=== PATIENT | female | born 1945 | race Caucasian/White ===

== ENCOUNTER → 2017-03-19 | Outpatient (CLI) | payer MEDICARE | END | disposition home or self-care (01) | LOC: CFH 09:57 | PROVIDERS: ATTEND Family Medicine | DX: Z12.31 Encounter for screening mammogram for malignant neoplasm of breast (principal); M81.0 Age-related osteoporosis without current pathological fracture | CPT/HCPCS: 77063; 77080; G0202 ==

== ENCOUNTER → 2018-07-10 | Outpatient (CLI) | payer MEDICARE | END | disposition home or self-care (01) | LOC: CVU 12:28 | PROVIDERS: ATTEND Nurse Practitioner Family | DX: I73.9 Peripheral vascular disease, unspecified (principal); M79.662 Pain in left lower leg; M79.661 Pain in right lower leg; I48.91 Unspecified atrial fibrillation | CPT/HCPCS: 93922 ==

== ENCOUNTER → 2018-08-12 | Outpatient (CLI) | payer MEDICARE ==
[~2018-08-12] MED LIST: OMNIPAQUE 350 MG/ML, 100ML BOTTLE ONE
== END | disposition home or self-care (01) ==
LOC: CFH 09:29
PROVIDERS: ATTEND Family Medicine
DX: K59.00 Constipation, unspecified (principal); M47.896 Other spondylosis, lumbar region
CPT/HCPCS: 74177; Q9967

== ENCOUNTER 2019-01-31 23:18 | Emergency (ER) | payer MEDICARE ==
[~2019-01-31] VITALS: Ht 160 cm; Wt 47.0 kg
--- NOTE | 2019-01-31 23:53 | NUR ---
THIS IS A 73 Y/O FEMALE COMING TO THE ED FOR MULTIPLE SYMPTOMS THAT PER PT ORIGINATED WITH UTI THAT WAS DIAGNOSED LAST WEEK. PT REPORTS SHE WAS PLACED ON ABX BUT WAS TOLD TO STOP WHEN SHE STARTED DEVELOPING CHEST PAIN. PT DENIES TRUAMA. PT HAS NO SIGNS OF TRAUMA. PT IS TENDER TO PALPATION ON CHEST. PT PLACED IN BED AND AWAITING FURTHER ORDERS. CALL LIGHT IN REACH.
--- NOTE | 2019-02-01 00:26 | NUR ---
UA COLLECTED AND SENT TO LAB.
[2019-02-01 00:45] LABS: CULTURE INDICATED? YES; MICROSCOPIC INDICATED
[2019-02-01 00:45] LABS: MEAN CORPUSCULAR HEMOGLOBIN 31.1 pg (27.0-34.8); MEAN CORPUSCULAR HGB CONC 33.8 g/dL (32.4-35.8); MEAN CORPUSCULAR VOLUME 91.9 fL (80-100); MEAN PLATELET VOLUME 8.5 fL (7.4-10.4); PLATELET COUNT 300 x10^3/uL (130-400); RED BLOOD COUNT 3.79 x10^6/uL (3.82-5.3); RED CELL DISTRIBUTION WIDTH 13.6 % (9.6-15.2)
[2019-02-01 00:53] LABS: INTERNATIONAL NORMALIZED RATIO 0.98 (0.93-1.1); PROTHROMBIN TIME 10.3 Seconds (9.6-11.5)
[2019-02-01 00:56] LABS: ALANINE AMINOTRANSFERASE 35 U/L (12-78); ALBUMIN 3.2 g/dL (3.4-5.0); ANION GAP 8 mmol/L (5-15); CALCIUM 8.3 mg/dL (8.5-10.1); CHLORIDE 110 mmol/L (98-107); CREATININE 0.84 mg/dL (0.55-1.02)
[2019-02-01 01:01] LABS: ALKALINE PHOSPHATASE 95 U/L (45-117); BILIRUBIN,TOTAL 0.3 mg/dL (0.2-1.0); TOTAL PROTEIN 7.4 g/dL (6.4-8.2); TROPONIN I < 0.015 ng/mL (0.000-0.045)
[2019-02-01 01:05] LABS: MD YES
[2019-02-01 01:08] LABS: <PLATELET ESTIMATE> ADEQUATE; <PLT MORPHOLOGY> NORMAL PLT MORPH; ANISOCYTOSIS 1+; BAND#(MANUAL) 0.24 x10^3/uL; BANDS%(MANUAL) 2 % (0-7); EOS#(MANUAL) 0.48 x10^3/uL (0.0-0.4); EOS% (MANUAL) 4 % (1-7); LYMPH#(MANUAL) 1.55 x10^3/uL (1-3.4); LYMPHS% (MANUAL) 13 % (22-44); MONOS#(MANUAL) 1.31 x10^3/uL (0.3-2.7); MONOS% (MANUAL) 11 % (2-9); SEG#(MANUAL) 8.33 x10^3/uL (1.8-6.8); SEGS% (MANUAL) 70 % (42-75)
[2019-02-01] MEDS ORDERED: APAP/CODEINE 300/30MG TABLET PO PRN (01:30)
--- NOTE | 2019-02-01 01:42 | NUR ---
PT MEDICATED FOR PAIN
[2019-02-01] MEDS ORDERED: HYDR200T72 PO (02:55)
[2019-02-01] MEDS ORDERED: ESTRADIOL CREAM TD (02:55)
[2019-02-01] MEDS ORDERED: LANS30CA PO (02:55)
[2019-02-01] MEDS ORDERED: OMEG-76 PO (02:55)
[2019-02-01] MEDS ORDERED: CEVI30CA4 PO (02:55)
[2019-02-01] MEDS ORDERED: ASPI-496 PO (02:55)
[2019-02-01] MEDS ORDERED: ZALE10CA PO (02:55)
[2019-02-01 03:01] VITALS: BP 100/55
== END 2019-02-01 03:03 | disposition home or self-care (01) ==
LOC: ED 23:46
DX: J15.9 Unspecified bacterial pneumonia (principal); J06.9 Acute upper respiratory infection, unspecified; H10.89 Other conjunctivitis; M54.5 Low back pain; B37.0 Candidal stomatitis
CPT/HCPCS: 36415; 71045; 74176; 80053; 81001; 83690; 83880; 84484; 85025; 85610; 85730; 87086; 93005; 99284

== ENCOUNTER 2019-02-26 09:12 | Emergency (ER) | payer MEDICARE ==
[~2019-02-26] VITALS: Ht 160 cm; Wt 45.5 kg
[~2019-02-26 09:12] MED LIST changes: +ASPI-496 PO; +CEVI30CA4 PO; +ESTRADIOL CREAM TD; +HYDR200T72 PO; +LANS30CA PO; +OMEG-76 PO; -OMNIPAQUE 350 MG/ML, 100ML BOTTLE ONE; +ZALE10CA PO
--- NOTE | 2019-02-26 09:46 | NUR ---
PT REPORTS THAT IT IS DIFFICULT TO TAKE A DEEP BREATH D/T PAIN W/ DEEP INSPIRATION. PAIN HAS BEEN INTERMITTENT X 2 WEEK, PT REPORTS SHE WAS CONCERNED ABOUT CONSIPTION BUT TOOK OTC STOOL SOFTENERS AND HAS HAD NORMAL BMS W/O RELIEF OF SYMPTOMS.
[2019-02-26 10:09] LABS: BASOPHILS % (AUTO) 1 % (0-1); EOSINOPHILS # (AUTO) 0.29 x10^3/uL (0-0.4); EOSINOPHILS % (AUTO) 3 % (1-7); LYMPHOCYTES # (AUTO) 2.13 x10^3/uL (1-3.4); LYMPHOCYTES % (AUTO) 25 % (22-44); MD NO; MEAN CORPUSCULAR HEMOGLOBIN 30.3 pg (27.0-34.8); MEAN CORPUSCULAR HGB CONC 33.5 g/dL (32.4-35.8); MEAN CORPUSCULAR VOLUME 90.4 fL (80-100); MEAN PLATELET VOLUME 7.9 fL (7.4-10.4); MONOCYTES % (AUTO) 7 % (2-9); NEUTROPHILS # (AUTO) 5.53 x10^3/uL (1.8-6.8); NEUTROPHILS % (AUTO) 64 % (42-75); PLATELET COUNT 355 x10^3/uL (130-400); RED BLOOD COUNT 4.08 x10^6/uL (3.82-5.3); RED CELL DISTRIBUTION WIDTH 13.7 % (9.6-15.2)
[2019-02-26 10:22] LABS: ALANINE AMINOTRANSFERASE 26 U/L (12-78); ALBUMIN 3.3 g/dL (3.4-5.0); ANION GAP 5 mmol/L (5-15); CALCIUM 8.7 mg/dL (8.5-10.1); CHLORIDE 111 mmol/L (98-107); CREATININE 0.84 mg/dL (0.55-1.02)
[2019-02-26 10:26] LABS: ALKALINE PHOSPHATASE 87 U/L (45-117); BILIRUBIN,TOTAL 0.3 mg/dL (0.2-1.0); TOTAL PROTEIN 7.6 g/dL (6.4-8.2); TROPONIN I < 0.015 ng/mL (0.000-0.045)
[2019-02-26 10:56] VITALS: BP 133/62
--- NOTE | 2019-02-26 10:57 | NUR ---
MD MCKEON AT BEDSIDE TO ASSESS PT, IV ACCESS ESTABLISHED FOR CT SCAN, CT NOTIFIED
--- NOTE | 2019-02-26 11:31 | NUR ---
PT IN CT AT THIS TIME
[2019-02-26] MEDS ORDERED: OMNIPAQUE 350 MG/ML, 100ML BOTTLE ONE (11:44)
--- NOTE | 2019-02-26 12:00 | NUR ---
PT RETURNED FROM CT W/O COMPLICATION, RN REQUESTED UA SAMPLE WHICH PT STATES SHE IS NOT ABLE TO PROVIDE AT THIS TIME, PT IN BED, NAD, CALL LIGHT IN REACH, NO OTHER NEEDS, WCTM.
--- NOTE | 2019-02-26 12:32 | NUR ---
UA SENT TO LAB
[2019-02-26 12:43] LABS: MICROSCOPIC AUTO
[2019-02-26 12:54] LABS: CULTURE INDICATED? YES
== END 2019-02-26 13:22 | disposition home or self-care (01) ==
LOC: ED 09:43
DX: R09.1 Pleurisy (principal)
CPT/HCPCS: 36415; 71045; 71275; 80053; 81001; 83880; 84484; 85025; 87086; 93005; 99284; Q9967